=== PATIENT | female | born 1970 | race Caucasian/White ===

== ENCOUNTER → 2020-07-11 | Outpatient (CLI) | payer OTHER | LOC: MC.RAD 07:12 | DX: N63.20 Unspecified lump in the left breast, unspecified quadrant (principal); N64.4 Mastodynia ==

== ENCOUNTER → 2021-01-09 | Outpatient (CLI) | payer SELFPAY | LOC: MC.RAD 01-08 13:00 | DX: N60.02 Solitary cyst of left breast (principal); N64.4 Mastodynia; N63.0 Unspecified lump in unspecified breast; R92.8 Other abnormal and inconclusive findings on diagnostic imaging of breast ==